=== PATIENT | male | born 1975 | race Caucasian/White ===

== ENCOUNTER 2022-10-06 07:19 | Day surgery (SDC) | payer BC ==
[~2022-10-06 07:19] MED LIST: Lactated Ringers 1,000 ML IV SCH; Lidocaine 1%/Sod Bicarbonate in NS 8.4% 1 ML Syringe IDERM PRN; Sodium Chloride 0.9% 10 ML Syringe FLUSH PRN; Sodium Chloride 0.9% 10 ML Syringe FLUSH SCH
[2022-10-06] MEDS ORDERED: Lidocaine 1% 2 ML ONE (09:12)
[2022-10-06] MEDS ORDERED: Propofol 200 MG/20 ML SDV ONE ×3 (09:12→10:09)
[2022-10-06] MEDS ORDERED: Lidocaine 1% with EPINEPHrine 1:100,000 20 ML MDV ONE (09:13)
[2022-10-06] MEDS ORDERED: Midazolam 1 MG/ML 2 ML SDV ONE (09:13)
[2022-10-06] MEDS ORDERED: fentaNYL 100 MCG/2 ML SDV ONE (09:13)
[2022-10-06] MEDS ORDERED: Bupivacaine 0.5%/EPINEPHrine 1:200,000 50 ML MDV ONE (09:13)
[2022-10-06] MEDS ORDERED: ceFAZolin 2 GM Vial ONE (10:00)
== END 2022-10-06 11:40 | disposition home or self-care (01) ==
LOC: JD.SDS 07:19
PROVIDERS: ATTEND Surgery
DX: Z12.11 Encounter for screening for malignant neoplasm of colon (principal); K63.5 Polyp of colon; D17.1 Benign lipomatous neoplasm of skin and subcutaneous tissue of trunk; J45.909 Unspecified asthma, uncomplicated; Z83.71 Family history of colonic polyps
CPT/HCPCS: 21930; 21931; 45385; J0690; J2250; J2704; J3010; J3490; J7120; 00300